=== PATIENT | female | born 2000 | race Caucasian/White ===

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

== ENCOUNTER → 2018-01-11 19:28 | Outpatient (CLI) | payer MEDICAID ==
[2014-10-16 15:59] VITALS: BMI 40.9
[2018-01-11 19:49] LABS: BASOPHILS 0.5 % (0-2); EOSINOPHILS 7.8 % (0-7); HEMATOCRIT 36.7 % (36.0-48.0); HEMOGLOBIN 11.9 g/dL (12-16); LYMPHOCYTES 51.7 % (15-50); MCH 25.8 pg (26.0-34.0); MCHC 32.4 g/dL (31.0-37.0); MCV 79.6 fL (80.0-100.0); MEAN PLATELET VOLUME 9.1 fL (7.4-10.4); MONOCYTES 8.7 % (2-11); NEUTROPHILS 31.3 % (40-80); PLATELET COUNT 303 10x3/uL (130-400); RBC 4.61 10x6/uL (4.00-5.40); RDW 20.5 % (11.5-14.5); WBC 5.7 10x3/uL (4.8-10.8)
[2018-01-11 20:15] LABS: ALBUMIN 4.2 g/dL (3.4-5.0); ALKALINE PHOSPHATASE 85 U/L (46-116); ALT (SGPT) 37 U/L (10-68); AMYLASE - SERUM 95 U/L (25-115); BILIRUBIN - TOTAL 0.99 mg/dL (0.2-1.3); CALC OSMOLALITY 282 mosm/kg (275-300); CALCIUM 9.4 mg/dL (8.5-10.1); CARBON DIOXIDE 25.1 mmol/L (21.0-32.0); CHLORIDE - SERUM 105 mmol/L (98-107); CREATININE - SERUM 0.8 mg/dL (0.6-1.3); GLUCOSE 91 mg/dL (74-106); LIPASE 188 U/L (73-393); PROTEIN - SERUM 8.1 g/dL (6.4-8.2); SODIUM 141 mmol/L (136-145); UREA NITROGEN 17 mg/dL (7-18); eGFR NON AFRICAN AMERICAN > 90 mL/min (90-120)
== END | disposition home or self-care (01) ==
LOC: D.LAB 19:28
PROVIDERS: Family Medicine
DX: R10.9 Unspecified abdominal pain (principal)

== ENCOUNTER → 2018-12-26 11:12 | Outpatient (CLI) | payer MEDICAID ==
[2014-10-16 15:59] VITALS: BMI 40.9
== END | disposition home or self-care (01) ==
LOC: D.LDO 11:12
PROVIDERS: ATTEND Obstetrics & Gynecology
DX: O36.5930 Maternal care for other known or suspected poor fetal growth, third trimester, not applicable or unspecified (principal); Z3A.33 33 weeks gestation of pregnancy

== ENCOUNTER → 2018-12-29 12:25 | Outpatient (CLI) | payer MEDICAID ==
[2014-10-16 15:59] VITALS: BMI 40.9
== END | disposition home or self-care (01) ==
LOC: D.LDO 12:25
PROVIDERS: ATTEND Obstetrics & Gynecology
DX: O36.8930 Maternal care for other specified fetal problems, third trimester, not applicable or unspecified (principal); Z3A.33 33 weeks gestation of pregnancy

== ENCOUNTER → 2019-02-04 17:51 | Outpatient (CLI) | payer MEDICAID ==
[2014-10-16 15:59] VITALS: BMI 40.9
[~2019-02-04 17:51] MED LIST changes: +ALBUTEROL SULF8.5 GM INH; +HYDROCODON-ACE1 EAC7 PO; +MOTRIN600 MG PO; +OMEPRAZOLE40 MG PO; +ZOFRAN ODT4 MG/UDTAB PO
[2019-02-04 18:39] LABS: APPEARANCE CLEAR (CLEAR); BILIRUBIN NEGATIVE (NEGATIVE); COLOR YELLOW (YELLOW); GLUCOSE NEGATIVE (NEGATIVE); KETONE NEGATIVE (NEGATIVE); NITRITE NEGATIVE (NEGATIVE); PROTEIN NEGATIVE (NEGATIVE); SPECIFIC GRAVITY 1.015 (1.005-1.020); UROBILINOGEN NORMAL (NORMAL)
[2019-02-04 19:02] LABS: UDS - AMPHET NEGATIVE QUAL (NEGATIVE); UDS - BARB NEGATIVE QUAL (NEGATIVE); UDS - BENZO NEGATIVE QUAL (NEGATIVE); UDS - COCAINE NEGATIVE QUAL (NEGATIVE); UDS - OPIATE NEGATIVE QUAL (NEGATIVE); UDS - PCP NEGATIVE QUAL (NEGATIVE); UDS - THC NEGATIVE QUAL (NEGATIVE)
== END | disposition home or self-care (01) ==
LOC: D.LDO 17:51
PROVIDERS: ATTEND Obstetrics & Gynecology
DX: O26.899 Other specified pregnancy related conditions, unspecified trimester (principal); Z3A.00 Weeks of gestation of pregnancy not specified; R51 Headache

== ENCOUNTER 2019-02-06 05:10 | Inpatient (IN) | payer MEDICAID ==
[~2019-02-06] VITALS: Ht 154.9 cm; Wt 85.5 kg
[~2019-02-06 05:10] MED LIST changes: -ALBUTEROL SULF8.5 GM INH; -HYDROCODON-ACE1 EAC7 PO; -MOTRIN600 MG PO; -OMEPRAZOLE40 MG PO; -ZOFRAN ODT4 MG/UDTAB PO
[2019-02-06 07:32] LABS: HEMOGLOBIN 9.8 g/dL (12-16); MCHC 32.7 g/dL (31.0-37.0); MCV 79.6 fL (80.0-100.0); MEAN PLATELET VOLUME 10.2 fL (7.4-10.4); RBC 3.77 10x6/uL (4.00-5.40); RDW 15.2 % (11.5-14.5); WBC 5.7 10x3/uL (4.8-10.8)
[2019-02-06] MEDS ORDERED: PRENAVITE1 TAB PO (08:38)
[2019-02-06 08:39] VITALS: BP 113/59; Ht 154.9 cm; Wt 85.5 kg
[2019-02-06 09:18] LABS: APPEARANCE CLEAR (CLEAR); BILIRUBIN NEGATIVE (NEGATIVE); COLOR YELLOW (YELLOW); GLUCOSE NEGATIVE (NEGATIVE); KETONE NEGATIVE (NEGATIVE); NITRITE NEGATIVE (NEGATIVE); PROTEIN NEGATIVE (NEGATIVE); SPECIFIC GRAVITY 1.015 (1.005-1.020); UROBILINOGEN NORMAL (NORMAL)
[2019-02-06 09:20] LABS: BACTERIA MANY /hpf (NONE SEEN); EPITHELIAL CELLS 0-5 /hpf (0-5); WHITE CELLS - URINE 0-5 /hpf (0-5)
[2019-02-06 09:39] LABS: UDS - AMPHET NEGATIVE QUAL (NEGATIVE); UDS - BARB POSITIVE QUAL (NEGATIVE); UDS - BENZO NEGATIVE QUAL (NEGATIVE); UDS - COCAINE NEGATIVE QUAL (NEGATIVE); UDS - OPIATE NEGATIVE QUAL (NEGATIVE); UDS - PCP NEGATIVE QUAL (NEGATIVE); UDS - THC NEGATIVE QUAL (NEGATIVE)
--- NOTE | 2019-02-06 16:52 | NUR ---
ORDERS RCVD FROM DR GALVEZ.
[2019-02-06 20:00] VITALS: BP 115/64
--- NOTE | 2019-02-06 20:00 | NUR ---
PT REC'D IN BED AT THIS TIME. STATES THAT PAIN IS A 6 AT THIS TIME. VSS LUNGS CLEAR BS +. FUNDUS FIRM, DISPLACED TO THE LEFT. MODERATE LOCHIA NOTED. PT VOICES A NEED TO VOID AT THIS TIME. EPIDURAL LINE IN PLACE, ATTEMPTED TO REMOVE WITHOUT SUCCESS. ANESTHESIA BEEPED AT 2019 WITH RETURN CALL REC'D AT 2021. ANESTHESIA TO ROOM AT 2031 TO REMOVE LINE. TIP INTACT. PT TOLERATED WELL. NO ACUTE DISTRESS NOTED. PT UP TO SHOWER WITH + VOID NOTED. Binu SKELTON RN
--- NOTE | 2019-02-06 21:00 | NUR ---
PT TRANSFERRED TO ROOM 1273 AND MEDICATED AT 2103 WITH HYDROCODONE FOR PAIN LEVEL OF 6. L MIGUEL SKELTON
--- NOTE | 2019-02-06 22:15 | NUR ---
PT STATES PAIN LEVEL OF 3 AT THIS TIME. WILL CONTINUE TO MONITOR THIS SHIFT. Binu SKELTON RN
--- NOTE | 2019-02-07 00:15 | NUR ---
PT AMBULATING IN HALLS AT THIS TIME. DENIES NEEDS. Binu SKELTON RN
--- NOTE | 2019-02-07 01:33 | NUR ---
PT MEDICATED AT THIS TIME. FOR PAIN LEVEL OF 5 WITH MOTRIN . WILL CONTINUE TO MONTIOR. Binu SKELTON RN
--- NOTE | 2019-02-07 03:15 | NUR ---
PT REC'D IN BED AT THIS TIME. DENIES NEEDS/PAIN AT THIS TIME. Binu SKELTON RN
[2019-02-07 07:17] LABS: BASOPHILS 0.2 % (0-2); EOSINOPHILS 3.8 % (0-7); HEMATOCRIT 25.8 % (36.0-48.0); HEMOGLOBIN 8.3 g/dL (12-16); IMMATURE GRANULOCYTES 0.3 % (0-5); LYMPHOCYTES 32.9 % (15-50); MCH 25.9 pg (26.0-34.0); MCHC 32.2 g/dL (31.0-37.0); MCV 80.6 fL (80.0-100.0); MEAN PLATELET VOLUME 10.1 fL (7.4-10.4); MONOCYTES 11.4 % (2-11); NEUTROPHILS 51.4 % (40-80); PLATELET COUNT 267 10x3/uL (130-400); WBC 6.3 10x3/uL (4.8-10.8)
[2019-02-07 07:18] LABS: RAPID PLASMA REAGIN Non Reactive (Non Reactive)
[2019-02-07 09:30] VITALS: BP 115/72
--- NOTE | 2019-02-07 09:30 | NUR ---
AM ASSESSMENT COMPLETED CHARTED ON FLOWSHEET. PT RATES PAIN AT 5/10 AND REQUEST MOTRIN ONLY. FUNDUS FIRM AT U/1 MIDLINE WITH SCANT LOCHIA NOTED. LOCO PAD AND MESH BRIEFS PLACED IN [id number] PER REQUEST. INFANT IN CRIB AT BEDSIDE.
--- NOTE | 2019-02-07 09:57 | NUR ---
MOTRIN GIVEN REQUESTED SEE EMAR./
--- NOTE | 2019-02-07 10:30 | NUR ---
RATES PAIN AT 0/10 AND DENIES NEEDS.
--- NOTE | 2019-02-07 12:01 | NUR ---
CONTINUE TO RATE PAIN AT 0/10. LARGE CUP OF ICE REQUESTED.
--- NOTE | 2019-02-07 14:30 | NUR ---
DENIES NEEDS AT THIS TIME. RATES PAIN AT 0/10. SIDE RAILS UP X 2 WITH CALL LIGHT IN REACH.
--- NOTE | 2019-02-07 15:15 | NUR ---
PT WALKING IN HALLS WITH IN CRIB. DENIES NEEDS.
--- NOTE | 2019-02-07 17:00 | NUR ---
RATES PAIN AT 0/10. LARGE CUP OF ICE WITH APPLE JUICE REQUESTED. AND TODDLER SON PROVIDED WITH MILK. NO OTHER NEEDS AT THIS TIME. IN NURSERY, LIGHTS DIMMED PER REQUEST OF PT. SIDE RAILS UP X 2 WITH CALL LIGHT IN REACH.
--- NOTE | 2019-02-07 19:33 | NUR ---
VITAL SIGNS OBTAINED. REQUESTING PAIN MED FOR ABD. CRAMPING. SMALL CHILD IN ROOM WITH PT.
[2019-02-07 19:34] VITALS: BP 121/58
--- NOTE | 2019-02-07 19:34 | NUR ---
PAIN MED GIVEN ORDERED. PT. AWAKE AND ORIENTED. SKIN WARM AND DRY. FUNDUS FIRM U/3 AND LOCHIA RUBRA SCANT. BREATH SOUNDS CLEAR AND BOWEL SOUNDS AUDIBLE. NO EDEMA OF LOWE EXTREMITIES NOTED. PT. DENIES ANY PAIN IN LOWER EXTREMITIES. PT. REPORTS PASSING FLATUS BUT NO BOWEL MOVEMENT YET.
--- NOTE | 2019-02-07 19:40 | NUR ---
POC DISCUSSED WITH PT. REGARDING MOVING TO [facility].
--- NOTE | 2019-02-07 20:55 | NUR ---
PT TRANSFERRED SELF TO BED FROM , PT ORIENTED TO ROOM, BED IN LOW POSITION, SIDE RAILS X 2, CALL LIGHT IN REACH, IN OPEN CRIB CART, OTHER CHILD AND FEMALE FAMILY MEMBER AT BEDSIDE
--- NOTE | 2019-02-07 20:55 | NUR ---
TRANSFERRED TO 1221 VIA WHEELCHAIR. REPORT TO JACQUIE MAKI RN.
--- NOTE | 2019-02-07 21:10 | NUR ---
PT REQUESTED AND SERVED GRAPE JUICE AND MILK, DENIES FURTHER NEEDS
--- NOTE | 2019-02-07 22:25 | NUR ---
PT UP IN BR, INFANT IN OPEN CRIB CART, OTHER CHILD SITTING ON BED, PINK PAD CHANGED, PT DENIES FURTHER NEEDS OR PAIN AT THIS TIME, BED IN LOW POSITION, SIDE RAILS X 2, CALL LIGHT IN REACH
--- NOTE | 2019-02-08 00:12 | NUR ---
PT RESTING WITH EYES CLOSED, RESP QUIET, NO DISTRESS NOTED, LEFT UNDISTURBED AT THIS TIME, IN OPEN CRIB CART AT BEDSIDE, OTHER CHILD ASLEEP IN BED WITH PT
--- NOTE | 2019-02-08 01:18 | NUR ---
PT FRATERNITY HOUSE COOK LIGHT, PT C/O PAIN AND CRAMPING, ADM NORCO AND MOTRIN PER MD ORDERS, SEE EMAR, WITH FRESH H20, PT DENIES FURTHER NEEDS, INFANT IN OPEN CRIB CART AND OTHER CHILD ASLEEP IN BED
--- NOTE | 2019-02-08 04:00 | NUR ---
PT IS AWAKE, HOLDING , OTHER CHILD UP IN BED WITH PT, PT DENIES NEEDS OR PAIN AT THIS TIME
--- NOTE | 2019-02-08 07:00 | NUR ---
REPORT TO JAYLENE CHAUDHRY RN
[2019-02-08 07:30] VITALS: BP 91/41
--- NOTE | 2019-02-08 07:30 | NUR ---
VS OBTAINED BY JAYLENE CHAUDHRY RN
--- NOTE | 2019-02-08 08:30 | NUR ---
ASSESSMENT PER FLOW SHEET, PT REPORTS FLATUS, NO BM AND VOIDING WITH NO DIFFICULTY, PT DENIES NEEDS OR PAIN AT THIS TIME, AND OTHER CHILD IN ROOM
--- NOTE | 2019-02-08 09:44 | NUR ---
PT REQUESTED AND PROVIDED LOCO PADS, PT REPORTS THAT SHE DOES NOT NEED THE NICOTINE PATCH, DENIES FURTHER NEEDS OR PAIN AT THIS TIME, INFANT IN OPEN CRIB CART AND OTHER CHILD IN ROOM
--- NOTE | 2019-02-08 12:27 | NUR ---
PT RESTING IN BED, WATCHING TV, PT'S SON ASLEEP IN BED AT THIS TIME, IN OPEN CRIB CART AT BEDSIDE, PT DENIES NEEDS OR PAIN
[2019-02-08] MEDS ORDERED: HYDROCODON-ACE1 EAC7 PO (14:19)
[2019-02-08] MEDS ORDERED: MOTRIN600 MG PO (14:21)
--- NOTE | 2019-02-08 14:43 | NUR ---
pt states she is ready to go home but is waiting on her ride. discharge inst verbal and written given. prescription x2 meds, pt med rec and drug data sheets given. awhonn info sheet given. pfw post info given. see pt inst sign page. also pt health summary given. denies questions. informed pt to let nurse know when ready for w/c.
--- NOTE | 2019-02-08 15:26 | NUR ---
PT DISCHARGED HOME WITH INFANT- TO AUTO VIA W/C.
== END 2019-02-08 15:26 | disposition home or self-care (01) | DRG 806 ==
LOC: D.LD 05:10 → D.WS 02-07 20:59
PROVIDERS: ADMIT Obstetrics & Gynecology; ATTEND Obstetrics & Gynecology
PROC: 10E0XZZ Delivery of Products of Conception, External Approach (ICD-10-PCS; principal; 2019-02-06)
PROC: 10907ZC Drainage of Amniotic Fluid, Therapeutic from Products of Conception, Via Natural or Artificial Opening (ICD-10-PCS; 2019-02-06)
PROC: 3E033VJ Introduction of Other Hormone into Peripheral Vein, Percutaneous Approach (ICD-10-PCS; 2019-02-06)
DX: O98.32 Other infections with a predominantly sexual mode of transmission complicating childbirth (principal); O98.82 Other maternal infectious and parasitic diseases complicating childbirth; Z37.0 Single live birth; A56.8 Sexually transmitted chlamydial infection of other sites; Z3A.39 39 weeks gestation of pregnancy; B95.1 Streptococcus, group B, as the cause of diseases classified elsewhere; F34.1 Dysthymic disorder

== ENCOUNTER 2019-03-08 15:44 | Emergency (ER) | payer MEDICAID ==
[~2019-03-08] VITALS: Ht 154.9 cm; Wt 73.6 kg
[~2019-03-08 15:44] MED LIST changes: +HYDROCODON-ACE1 EAC7 PO; +MOTRIN600 MG PO
[2019-03-08 16:06] VITALS: Ht 154.9 cm; Wt 73.6 kg
[2019-03-08 16:30] LABS: BASOPHILS 0.3 % (0-2); EOSINOPHILS 2.4 % (0-7); HEMATOCRIT 34.1 % (36.0-48.0); HEMOGLOBIN 11.2 g/dL (12-16); IMMATURE GRANULOCYTES 0.2 % (0-5); LYMPHOCYTES 13.3 % (15-50); MCH 25.7 pg (26.0-34.0); MCHC 32.8 g/dL (31.0-37.0); MCV 78.2 fL (80.0-100.0); MEAN PLATELET VOLUME 9.8 fL (7.4-10.4); MONOCYTES 5.7 % (2-11); NEUTROPHILS 78.1 % (40-80); PLATELET COUNT 271 10x3/uL (130-400); RBC 4.36 10x6/uL (4.00-5.40); RDW 15.7 % (11.5-14.5); WBC 6.3 10x3/uL (4.8-10.8)
[2019-03-08 16:42] LABS: HCG SERUM NEGATIVE (NEGATIVE)
[2019-03-08 16:43] LABS: ALBUMIN 3.8 g/dL (3.4-5.0); ALKALINE PHOSPHATASE 91 U/L (46-116); ALT (SGPT) 21 U/L (10-68); BILIRUBIN - TOTAL 0.64 mg/dL (0.2-1.3); CALC OSMOLALITY 278 mosm/kg (275-300); CALCIUM 8.8 mg/dL (8.5-10.1); CARBON DIOXIDE 26.8 mmol/L (21.0-32.0); CHLORIDE - SERUM 105 mmol/L (98-107); CREATININE - SERUM 0.7 mg/dL (0.6-1.3); GLUCOSE 103 mg/dL (74-106); POTASSIUM - SERUM 3.7 mmol/L (3.5-5.1); PROTEIN - SERUM 7.6 g/dL (6.4-8.2); SODIUM 140 mmol/L (136-145); UREA NITROGEN 13 mg/dL (7-18); eGFR NON AFRICAN AMERICAN > 90 mL/min (90-120)
[2019-03-08 16:46] LABS: AMYLASE - SERUM 72 U/L (25-115); LIPASE 148 U/L (73-393)
[2019-03-08 16:47] LABS: TROPONIN-I < 0.017 ng/mL (0.000-0.060)
[2019-03-08 17:59] LABS: APPEARANCE HAZY (CLEAR); BILIRUBIN NEGATIVE (NEGATIVE); COLOR YELLOW (YELLOW); GLUCOSE NEGATIVE (NEGATIVE); KETONE NEGATIVE (NEGATIVE); NITRITE NEGATIVE (NEGATIVE); PROTEIN TRACE mg/dL (NEGATIVE); UROBILINOGEN NORMAL (NORMAL)
[2019-03-08 18:01] LABS: BACTERIA FEW /hpf (NONE SEEN); EPITHELIAL CELLS 0-5 /hpf (0-5); MUCUS <1+ /lpf (NONE SEEN); RED CELLS - URINE 25-50 /hpf (0-5); WHITE CELLS - URINE OCC /hpf (0-5)
[2019-03-08] MEDS ORDERED: ZOFRAN ODT4 MG/UDTAB PO (22:16)
[2019-03-08] MEDS ORDERED: OMEPRAZOLE40 MG PO (22:16)
[2019-03-08] MEDS ORDERED: ALBUTEROL SULF8.5 GM INH (22:16)
[2019-03-08 22:34] VITALS: BP 123/65
== END 2019-03-08 22:36 | disposition home or self-care (01) ==
LOC: D.ER 15:44
PROVIDERS: Family Medicine
DX: K29.70 Gastritis, unspecified, without bleeding (principal); J45.901 Unspecified asthma with (acute) exacerbation

== ENCOUNTER 2020-01-19 13:26 | Outpatient (CLI) | payer MEDICAID ==
[~2020-01-19] VITALS: Ht 154.9 cm; Wt 81.8 kg
[~2020-01-19 13:26] MED LIST changes: +ALBUTEROL SULF8.5 GM INH; +OMEPRAZOLE40 MG PO; +ZOFRAN ODT4 MG/UDTAB PO
[2020-01-19 13:29] VITALS: Ht 154.9 cm; Wt 81.8 kg
[2020-01-19 13:59] LABS: BASOPHILS 0.1 % (0-2); EOSINOPHILS 0.9 % (0-7); HEMATOCRIT 30.8 % (36.0-48.0); HEMOGLOBIN 9.6 g/dL (12-16); IMMATURE GRANULOCYTES 0.6 % (0-5); LYMPHOCYTES 20.7 % (15-50); MCH 26.4 pg (26.0-34.0); MCHC 31.2 g/dL (31.0-37.0); MCV 84.6 fL (80.0-100.0); MEAN PLATELET VOLUME 9.3 fL (7.4-10.4); MONOCYTES 7.8 % (2-11); NEUTROPHILS 69.9 % (40-80); PLATELET COUNT 326 10x3/uL (130-400); RBC 3.64 10x6/uL (4.00-5.40); RDW 14.8 % (11.5-14.5); WBC 7.8 10x3/uL (4.8-10.8)
[2020-01-19 14:06] LABS: APTT 23.7 SECONDS (22.8-39.4)
[2020-01-19 14:07] LABS: INR 0.98 (0.85-1.17)
[2020-01-19 14:10] LABS: CALC OSMOLALITY 272 mosm/kg (275-300); CALCIUM 8.6 mg/dL (8.5-10.1); CHLORIDE - SERUM 103 mmol/L (98-107); CREATININE - SERUM 0.6 mg/dL (0.6-1.3); GLUCOSE 105 mg/dL (74-106); POTASSIUM - SERUM 3.7 mmol/L (3.5-5.1); SODIUM 137 mmol/L (136-145); UREA NITROGEN 10 mg/dL (7-18); eGFR NON AFRICAN AMERICAN > 90 mL/min (90-120)
[2020-01-19 14:15] LABS: ALBUMIN 2.8 g/dL (3.4-5.0); ALKALINE PHOSPHATASE 89 U/L (30-120); ALT (SGPT) 16 U/L (10-68); BILIRUBIN - TOTAL 0.26 mg/dL (0.2-1.3); PROTEIN - SERUM 6.8 g/dL (6.4-8.2)
[2020-01-19] MEDS ORDERED: ACETAMINOPHEN500 M1 PO (15:01)
[2020-01-19 19:00] VITALS: BP 103/69
== END 2020-01-19 20:59 | disposition home or self-care (01) ==
LOC: D.LDO 13:26 → D.ER 13:26 → EDSTATUS 20:09 → D.LDO 20:33
PROVIDERS: Family Medicine; ATTEND Obstetrics & Gynecology
DX: O26.899 Other specified pregnancy related conditions, unspecified trimester (principal); Z3A.00 Weeks of gestation of pregnancy not specified; R10.30 Lower abdominal pain, unspecified; V89.2XXA Person injured in unspecified motor-vehicle accident, traffic, initial encounter

== ENCOUNTER → 2020-03-21 07:17 | Outpatient (CLI) | payer MEDICAID ==
[2020-01-19 13:29] VITALS: BMI 34.0
[~2020-03-21 07:17] MED LIST changes: +ACETAMINOPHEN500 M1 PO
--- NOTE | 2020-03-21 09:38 | NUR ---
VITALS PRE-BLOOD TRANSFUSION COMPLETED. TEMP 97.9, BP114/60, HR 86, RESP 18, O2 SAT97%.
--- NOTE | 2020-03-21 09:39 | NUR ---
BLOOD VERIFIED WITH MODESTO RIVERA. BLOOD TRANSFUSION STARTED.
--- NOTE | 2020-03-21 09:53 | NUR ---
TRANSFUSION HAS BEEN GOING 15 MINS. TEMP 98, RESP 18, O2 SAT 106/56, PULSE 82. PATIENT DENIES ANY PAIN OR NEEDS AT THIS TIME.
--- NOTE | 2020-03-21 10:10 | NUR ---
VITALS STABLE. TEMP 98, RESP 18, O2 SAT 98%, BLOOD PRESSURE 106/63, PULSE 87. PATIENT DENIES ANY NEEDS AT THIS TIME.
--- NOTE | 2020-03-21 10:43 | NUR ---
VSS. TEMP 98.8, O2 98%, BP 111/60, PULSE 88, RESP 16. IV SITE WNL. PATIENT TOLERATING BLOOD TRANSFUSION WITHOUT DIFFICULTY. PATIENT DENIES ANY PAIN IN IV SITE OR NEEDS AT THIS TIME.
--- NOTE | 2020-03-21 11:20 | NUR ---
VSS. TEMP 98.5, RESP 16, BP 111/55, HR 82. PATIENT DENIES ANY NEEDS AT THIS TIME. CALL LIGHT IN REACH. SIDE RAILS UP X2. IV SITE-RIGHT WRIST-WNL.
--- NOTE | 2020-03-21 12:03 | NUR ---
VSS. 1ST UNIT OF BLOOD COMPLETED. IV FLUSHED. IV SIGHT WNL. TEMP 98.8, RESP 16, BLOOD PRESSURE 106/58, HR 88. PATIENT DENIES NEEDS AT THIS TIME. CALL LIGHT IN REACH, SIDE RAILS UP X 2.
--- NOTE | 2020-03-21 12:30 | NUR ---
2ND UNIT BLOOD STARTED. PRE-TRANSFUSION VITALS TEMP 98.5, HR 96, BP 112/59, RESP 18, O2 SAT 99%. PATIENT DENIES NEEDS AT THIS TIME.
--- NOTE | 2020-03-21 12:47 | NUR ---
VSS TEMP 97.9, RESP 16, O2 SAT 98%, TEMP 97.9, BP 115/61. PATIENT DENIES NEEDS AT THIS TIME. CALL LIGHT IN REACH, SIDE RAILS UP X2.
--- NOTE | 2020-03-21 13:02 | NUR ---
VSS. TEMP 98.3, HR 89, RESP 16. BP 113/55, 02 SAT 98%. PATIENT DENIES ANY NEEDS AT THIS TIME. CALL LIGHT IN REACH, SIDE RAILS UP X2.
[2020-03-21 14:00] VITALS: BP 119/55
--- NOTE | 2020-03-21 14:04 | NUR ---
UP TO BATHROOM TO VOID.
--- NOTE | 2020-03-21 15:16 | NUR ---
2ND BLOOD TRANSFUSION COMPLETE. VSS. TEMP 98.6, RESP 16, O2 SAT 98%, BP 107/53, HR 84. IL SL-SITE WNL. PATIENT DENIES ANY NEEDS. CALL LIGHT IN REACH, SIDE RAILS UP X 2.
== END | disposition home or self-care (01) ==
LOC: D.LDO 07:17
PROVIDERS: ATTEND Obstetrics & Gynecology
DX: O24.419 Gestational diabetes mellitus in pregnancy, unspecified control (principal); Z3A.37 37 weeks gestation of pregnancy

== ENCOUNTER 2020-03-30 08:22 | Inpatient (IN) | payer MEDICAID ==
[~2020-03-30] VITALS: Ht 154.9 cm; Wt 95.3 kg
[2020-03-30 08:59] VITALS: BP 125/73; Ht 154.9 cm; Wt 95.3 kg
[2020-03-30 09:26] LABS: HEMATOCRIT 34.3 % (36.0-48.0); HEMOGLOBIN 10.7 g/dL (12-16); MCH 24.7 pg (26.0-34.0); MCHC 31.2 g/dL (31.0-37.0); MCV 79.2 fL (80.0-100.0); MEAN PLATELET VOLUME 9.7 fL (7.4-10.4); RBC 4.33 10x6/uL (4.00-5.40); RDW 17.3 % (11.5-14.5)
[2020-03-30 20:35] VITALS: BP 103/64
--- NOTE | 2020-03-30 20:40 | NUR ---
assessment completed, see shift assessment flow sheet, iv site converted to saline loc, epidural cath removed, black tip intact, site covered w/ bandaid, pt denies numbness in lower extremities, assisted to br, voided 400 clear yellow urine, assisted w/ uche care, instructed on use of uche bottle, plan for transfer to room 1257
--- NOTE | 2020-03-30 21:30 | NUR ---
room check, resting quietly in bed, in open crib at bedside, fundus firm, u-2. lochia scant. self care w/ uhce care, denies any problems no needs expressed
--- NOTE | 2020-03-30 23:47 | NUR ---
resting quietly in room, no needs voiced, in open crib at bedside. ice chips given. linens taken for support persons bed and towels and wash cloths taken for pt use
--- NOTE | 2020-03-31 00:10 | NUR ---
nsy nurse at bedside, reports pt requested pads and betadine for uche bottle given. no further needs voiced
--- NOTE | 2020-03-31 03:06 | NUR ---
ALERT AND ORIENTED IN ROOM HOLDING , SIG OTHER AT BEDSIDE RESTING ON COUCH, MEDICATED W/ MOTRIN FOR CRAMPING WHILE . NO FURTHER NEEDS EXPRESSED
--- NOTE | 2020-03-31 05:08 | NUR ---
at bedside, noticed patton not draining, moved tubing, 100ml clear yellow urine drained, pt resting quietly w/o signs of distress, did not disturb
--- NOTE | 2020-03-31 05:11 | NUR ---
to room, pt resting in bed alert and oriented, inquiring about pain medical transcription supervisor time. informed pt she may have norco again per orders at aprox 0540 am. pt agreeable to timing of medicine
--- NOTE | 2020-03-31 05:45 | NUR ---
to bedside to medicate for pain, pt sitting up in bed holding , rating "cramping" while feeding a 6. no further needs acknowledged
--- NOTE | 2020-03-31 06:40 | NUR ---
PT CALLED OUT AND REQUESTED MORE PAIN MEDICINE FOR INCREASING CRAMPING, NOTED NO MED IS DUE UNTIL 844, CALL TO DR GALVEZ, ORDERS REC'D TO GIVE ONE NORCO 5 NOW. TO ROOM, EDUCATED PT TO EMPTY BLADDAR OFTEN AND TRY TO REST AFTER TAKING PAIN MED. ACKNOWLEDGED UNDERSTANDING
--- NOTE | 2020-03-31 07:26 | NUR ---
LAYING ON R SIDE, RESTING WITH EYES CLOSED. RESP REGULAR AND UNLABORED, NO S/S OF DISTRESS NOTED. INFANT RESTING QUIETLY IN OPEN CRIB, RESP REGULAR AND UNLABORED, NO S/S OF DISTRESS NOTED. BED IN LOW POSITION WITH SRUP X2. CALL LIGHT AND PHONE WITHIN REACH. WILL CONTINUE TO MONITOR.
[2020-03-31 07:50] LABS: BASOPHILS 0.1 % (0-2); EOSINOPHILS 1.3 % (0-7); HEMATOCRIT 30.6 % (36.0-48.0); HEMOGLOBIN 9.6 g/dL (12-16); IMMATURE GRANULOCYTES 0.5 % (0-5); LYMPHOCYTES 26.2 % (15-50); MCH 24.9 pg (26.0-34.0); MCHC 31.4 g/dL (31.0-37.0); MCV 79.3 fL (80.0-100.0); MEAN PLATELET VOLUME 9.8 fL (7.4-10.4); MONOCYTES 10.7 % (2-11); NEUTROPHILS 61.2 % (40-80); PLATELET COUNT 243 10x3/uL (130-400); RBC 3.86 10x6/uL (4.00-5.40); RDW 17.4 % (11.5-14.5)
[2020-03-31 07:52] LABS: WBC 8.8 10x3/uL (4.8-10.8)
[2020-03-31 08:41] VITALS: BP 110/76
--- NOTE | 2020-03-31 08:41 | NUR ---
SHIFT ASSESSMENT COMPLETED PER FLOWSHEET. VSS. FUNDUS FIRM, MIDLINE AND U2 WITH SMALL RUBRA LOCHIA, NO CLOTS NOTED. C/O NAUSEA AND ABD CRAMPING, REQUESTS MORTRIN AND LESLYE WILL PROVIDE PER ORDER. REPORTS THAT SHE IS VOIDING AND PASSING FLATUS WITHOUT DIFFICULTY. POC DISCUSSED WITH PT, VERBALIZES UNDERSTANDING AND DENIES QUESTIONS. BED IN LOW POSITION WITH SRUP X2. CALL LIGHT AND PHONE WITHIN REACH. WILL CONTINUE TO MONITOR.
--- NOTE | 2020-03-31 09:34 | NUR ---
RESTING QUIETLY IN SEMI-FOWLERS WITH EYES CLOSED. RESP REGULAR AND UNLABORED, NO S/S OF DISTRESS NOTED. BED IN LOW POSITION WITH SRUP X2. CALL LIGHT AND PHONE PLACED WITHIN REACH. WILL CONTINUE TO MONITOR.
--- NOTE | 2020-03-31 10:44 | NUR ---
RN TO BEDSIDE, PT LAYING ON R SIDE RESTING WITH EYES CLOSED, RESP REGULAR AND UNLABORED, NO S/S OF DISTRESS NOTED. BED IN LOW POSITION WITH SRUP X2. CALL LIGHT AND PHONE WITHIN REACH. WILL CONTINUE TO MONITOR. SIGNIFICANT OTHER RESTING ON COUCH AT BEDSIDE.
--- NOTE | 2020-03-31 11:50 | NUR ---
CALLS VIA CALL LIGHT, REPORTS THAT SHE SHOWERED, REFUSED LINEN CHANGE. C/O ABD CRAMPING 7-03/25, REQUESTS NORCO AND PROVIDED PER REQUEST. IN FOB'S ARMS. ICE WATER AND SPRITE PROVIDED PER PT REQUEST. DENIES ADDITIONAL NEEDS. BED IN LOW POSITION WITH SRUP X2. CALL LIGHT AND PHONE WITHIN REACH. WILL CONTINUE TO MONITOR.
--- NOTE | 2020-03-31 12:27 | NUR ---
BONDING WITH INFANT IN ARMS. DENIES NEEDS. DENIES PAIN. SIGNIFICANT OTHER AT BEDSIDE, SUPPORTIVE AND ATTENTIVE TO PT AND INFANT NEEDS. BED IN LOW POSITION WITH SRUP X2. CALL LIGHT AND PHONE WITHIN REACH. WILL CONTINUE TO MONITOR.
--- NOTE | 2020-03-31 13:41 | NUR ---
ROUNDS MADE. RESTING QUIETLY ON R SIDE WITH EYES CLOSED. RESP REGULAR AND UNLABORED, NO S/S OF DISTRESS NOTED. RESTING QUIETLY IN OPEN CRIB AT BEDSIDE. BED IN LOW POSITION WITH SRUP X2. CALL LIGHT AND PHONE WITHIN REACH. WILL CONTINUE TO MONITOR.
--- NOTE | 2020-03-31 14:31 | NUR ---
RESTING QUIETLY WITH EYES CLOSED IN SEMI-FOWLERS POSITION. RESP REGULAR AND UNLABORED, NO S/S OF DISTRESS NOTED. BED IN LOW POSITION WITH SRUP X2. CALL LIGHT AND PHONE WITHIN REACH. RESTING QUIETLY IN OPEN CRIB AT BEDSIDE.
[2020-03-31 17:15] VITALS: BP 97/61
--- NOTE | 2020-03-31 17:15 | NUR ---
VSS. FUNDUS FIRM, MIDLINE AND U2 WITH SCANT RUBRA LOCHIA, NO CLOTS NOTED. C/O ABD CRAMPING, MOTRIN AND NORCO GIVEN PER ORDER AND PT REQUEST. ICE CHIPS PROVIDED PER REQUEST. DENIES ADDITIONAL NEEDS. LAYING AT MOM'S SIDE IN BED, MOM EDUCATED ON SAFE SLEEPING AND THAT IF SHE IS SLEEPING INFANT NEEDS TO BE PLACED IN OPEN, VERBALIZES UNDERSTANDING, STATES THAT SHE WILL PLACE INFANT IN CRIB PRIOR TO GOING TO SLEEP. DENIES ADDITIONAL NEEDS. BED IN LOW POSITION WITH SRUP X2. CALL LIGHT AND PHONE WITHIN REACH. WILL CONTINUE TO MONITOR.
--- NOTE | 2020-03-31 17:54 | NUR ---
RESTING QUIETLY WITH EYES CLOSED. NO S/S OF DISTRESS NOTED. BED IN LOW POSITION WITH SRUP X2. CALL LIGHT AND PHONE WITHIN REACH. WILL CONTINUE TO MONITOR. RESTING QUIETLY IN OPEN CRIB AT BEDSIDE.
[2020-03-31 19:50] VITALS: BP 94/40
--- NOTE | 2020-03-31 19:50 | NUR ---
PT REC'D IN BED AT THIS TIME. DENIES PAIN OR NEEDS. FUNDUS FIRM, U/2, SMALL LOCHIA NOTED. NO NEEDS VOICED AT THIS ITME. CALL LIGHT IN PT REACH. NO DISTRESS NOTED. Binu SKELTON RN
--- NOTE | 2020-03-31 21:26 | NUR ---
PT MEDICATED AT [facility]. FOR PAIN LEVEL OF 7/10. PT STATES THAT SHE IS CRAMPING. WILL CONTINUE TO MONITOR. Binu SKELTON RN
--- NOTE | 2020-03-31 22:09 | NUR ---
PT STATES THAT PAIN IS A 2-3 AFTER NORCO. WILL MONITOR. Binu SKELTON RN
--- NOTE | 2020-03-31 23:35 | NUR ---
PT RE'D IN BED AT THIS TIME. DENIES NEEDS OR PAIN AT THIS THIS TIME. Binu SKELTON RN
--- NOTE | 2020-04-01 01:52 | NUR ---
PT ASLEEP AT THIS TIME. NO DISTRESS NOTED. Binu SKELTON RN
--- NOTE | 2020-04-01 03:27 | NUR ---
PT MEDICATED FOR PAIN LEVEL OF 810. WILL MONITOR. Binu SKELTON RN
--- NOTE | 2020-04-01 04:15 | NUR ---
pt asleep at this time. did not awaken. no distress noted. charlie eden rn
--- NOTE | 2020-04-01 06:07 | NUR ---
PT REC'D IN BED AT THIS TIME. TAKING CARE OF . NO DISTRESS NOTED AT THIS TIME. NO CONCERNS VOICED. WILL MONITOR. Binu SKELTON RN
[2020-04-01 07:47] VITALS: BP 92/46
--- NOTE | 2020-04-01 07:52 | NUR ---
ASSESSMENT DONE. PT RESTING IN BED WITH . VERBAL RESPONSES APPRO TO QUESTIONS. DENIES NEEDS AT THIS TIME. FUNDUS UU/SMALL LOCHIA NOTED ON PAD.
--- NOTE | 2020-04-01 11:17 | NUR ---
RINGS CALL LIGHT- CO CRAMPING- RATES PAIN ABOUT AN 8 ON SCALE OF 0-10. REQUESTING PAIN MEDICATION.
--- NOTE | 2020-04-01 13:30 | NUR ---
UP AND ABOUT IN ROOM- DENIES NEEDS.
[2020-04-01] MEDS ORDERED: HYDROCODON-ACE1 EAC7 PO (15:57)
[2020-04-01] MEDS ORDERED: IBUPROFEN600 MG PO (15:58)
--- NOTE | 2020-04-01 16:00 | NUR ---
vickyi has been in to see infant and is discharging at 48hrs post del. beeped dr nixon to confirm discharge.
[2020-04-01 17:00] VITALS: BP 103/54
--- NOTE | 2020-04-01 17:00 | NUR ---
spoke with dr shabazz concerning discharge- report of hemograms. ok for discharge with .
--- NOTE | 2020-04-01 17:31 | NUR ---
DISCHARGE INST VERBAL AND WRITTEN GIVEN. SCRIPT GIVEN WITH PT MED REC AND DRUG DATA INFO. PFW POST AND AWHONN GUIDELINES GIVEN. SEE [facility] SIGNED INFO SHEET FOR FURTHER INST. PT HEALTH SUMMARY GIVEN. DENIES QUESTIONS. STATES SHE IS READY TO GO HOME.
--- NOTE | 2020-04-01 18:00 | NUR ---
DISCHARGED HOME WITH . TO AUTO VIA W/C PER Rudolph GANDHI LPN. JOHN
[2020-04-02 07:15] LABS: RAPID PLASMA REAGIN Non Reactive (Non Reactive)
== END 2020-04-01 18:00 | disposition home or self-care (01) | DRG 787 ==
LOC: D.LD 08:22
PROVIDERS: ADMIT Obstetrics & Gynecology; ATTEND Obstetrics & Gynecology
PROC: 10D00Z1 Extraction of Products of Conception, Low, Open Approach (ICD-10-PCS; principal; 2020-03-30)
PROC: 10907ZC Drainage of Amniotic Fluid, Therapeutic from Products of Conception, Via Natural or Artificial Opening (ICD-10-PCS; 2020-03-30)
PROC: 3E033VJ Introduction of Other Hormone into Peripheral Vein, Percutaneous Approach (ICD-10-PCS; 2020-03-30)
DX: O99.824 Streptococcus B carrier state complicating childbirth (principal); O98.32 Other infections with a predominantly sexual mode of transmission complicating childbirth; Z3A.39 39 weeks gestation of pregnancy; Z37.0 Single live birth; O24.420 Gestational diabetes mellitus in childbirth, diet controlled; J45.909 Unspecified asthma, uncomplicated; O75.9 Complication of labor and delivery, unspecified; A56.8 Sexually transmitted chlamydial infection of other sites

== ENCOUNTER → 2020-05-14 | Emergency (ER) | payer MEDICAID ==
[~2020-05-14] VITALS: Ht 154.9 cm; Wt 90.9 kg
[~2020-05-14] MED LIST changes: +MEDROL DOSE PACK4 MG PO; +MUCINEX DM ER1 EAC1 PO; +OMNICEF300 MG PO
[2020-05-14 08:22] VITALS: Ht 154.9 cm; Wt 90.9 kg
[2020-05-14 11:45] VITALS: BP 119/55
== END | disposition home or self-care (01) ==
LOC: D.ER 08:16
DX: J40 Bronchitis, not specified as acute or chronic (principal); J45.909 Unspecified asthma, uncomplicated; Z20.828 Contact with and (suspected) exposure to other viral communicable diseases; R05 Cough; R06.02 Shortness of breath; E11.9 Type 2 diabetes mellitus without complications